=== PATIENT | female | born 1990 | race Caucasian/White ===

== ENCOUNTER 2017-06-04 20:24 | Emergency (ER) | payer OTHER ==
[~2017-06-04] VITALS: Ht 162.6 cm; Wt 63.5 kg
[2017-06-04] MEDS ORDERED: ONDANSETRON PF 4 MG/2 ML VIAL. ONE (20:37)
[2017-06-04] MEDS ORDERED: ONDANSETRON PF 4 MG/2 ML VIAL. IV ONE (20:45)
[2017-06-04] MEDS ORDERED: IV NORMAL SALINE 1000ML BAG 1,000 ML IV ONE ×3 (20:45→23:30)
[2017-06-04 20:48] LABS: BASO # 0.1 x10^3/uL (0.0-0.2); BASO % 1 % (0-3); EOS % 1 % (0-3); HEMATOCRIT 39.6 % (36.0-47.0); HEMOGLOBIN 13.4 g/dL (12.0-15.5); LYMPH # 3.4 x10^3/uL (1.0-4.8); LYMPH % 44 % (24-48); MEAN CORPUSCULAR HEMOGLOBIN 31 pg (25-35); MEAN CORPUSCULAR HGB CONC 34 g/dL (31-37); MEAN CORPUSCULAR VOLUME 92 fL (79-100); MONO % 7 % (0-9); NEUT % 47 % (31-73); PLATELET COUNT 259 x10^3/uL (140-400); RED CELL DISTRIBUTION WIDTH 12.4 % (11.5-14.5); WHITE BLOOD COUNT 7.8 x10^3/uL (4.0-11.0)
--- NOTE | 2017-06-04 20:50 | PHYS DOC ---
Adult General Chief Complaint Chief Complaint: ALTERED MENTAL STATUS HPI HPI Patient is a 27 year old F who presents with altered mental status. Patient was at the sporting [employer] soccer game and had been consuming alcohol however states only had a few beers and became altered therefore went to the nurse's station for further evaluation who called EMS to the patient transferred to the emergency room. Upon arrival to emergency room patient started vomiting. Patient is AOx2. Patient has no other complaints other than she does not feel well. No family or boyfriend or at bedside. Review of Systems Review of Systems Review of systems are limited secondary to patient's current condition Current Medications Current Medications Current Medications Medications (Trade) Dose Ordered Sig/Guy Start Time Stop Time Status Last Admin Dose Admin Ondansetron HCl (Zofran) 4 mg 1X ONCE 06/04/17 20:45 06/04/17 20:46 DC 06/04/17 20:47 4 MG Sodium Chloride 1,000 ml @ 1,000 mls/hr 1X ONCE 06/04/17 23:30 06/05/17 00:29 DC 06/04/17 23:28 1,000 MLS/HR Allergies Allergies Allergies Coded Allergies Type Severity Reaction Last Updated Verified No Known Drug Allergies 06/04/17 No Physical Exam Physical Exam GEN.: Mild distress, confused HEENT: Head is normocephalic, atraumatic NECK: Supple. LUNGS: CTAB. HEART: tachy, S1, S2 present. Peripheral pulses intact ABDOMEN: Soft, nontender. Positive bowel sounds. EXTREMITIES: Without any cyanosis. NEUROLOGIC: Slurred speech PSYCHIATRIC: Confused SKIN: No ulcerations Current Patient Data Vital Signs Vital Signs Date Time Temp Pulse Resp B/P (MAP) Pulse Ox O2 Delivery O2 Flow Rate FiO2 06/04/17 23:50 120 18 119/84 (96) 100 Room Air 06/04/17 20:24 98.6 98.6 Lab Values Laboratory Tests Test 06/04/17 19:58 06/04/17 20:30 06/04/17 20:50 POC Urine HCG, Qualitative Hcg negative (Negative) White Blood Count 7.8 x10^3/uL (4.0-11.0) Red Blood Count 4.30 x10^6/uL (3.50-5.40) Hemoglobin 13.4 g/dL (12.0-15.5) Hematocrit 39.6 % (36.0-47.0) Mean Corpuscular Volume 92 fL (79-100) Mean Corpuscular Hemoglobin 31 pg (25-35) Mean Corpuscular Hemoglobin Concent 34 g/dL (31-37) Red Cell Distribution Width 12.4 % (11.5-14.5) Platelet Count 259 x10^3/uL (140-400) Neutrophils (%) (Auto) 47 % (31-73) Lymphocytes (%) (Auto) 44 % (24-48) Monocytes (%) (Auto) 7 % (0-9) Eosinophils (%) (Auto) 1 % (0-3) Basophils (%) (Auto) 1 % (0-3) Neutrophils # (Auto) 3.7 x10^3uL (1.8-7.7) Lymphocytes # (Auto) 3.4 x10^3/uL (1.0-4.8) Monocytes # (Auto) 0.6 x10^3/uL (0.0-1.1) Eosinophils # (Auto) 0.1 x10^3/uL (0.0-0.7) Basophils # (Auto) 0.1 x10^3/uL (0.0-0.2) Sodium Level 144 mmol/L (136-145) Potassium Level 3.5 mmol/L (3.5-5.1) Chloride Level 106 mmol/L (98-107) Carbon Dioxide Level 25 mmol/L (21-32) Anion Gap 13 (6-14) Blood Urea Nitrogen 12 mg/dL (7-20) Creatinine 0.8 mg/dL (0.6-1.0) Estimated GFR (Cockcroft-Gault) 86.7 BUN/Creatinine Ratio 15 (6-20) Glucose Level 116 mg/dL (70-99) H Calcium Level 8.2 mg/dL (8.5-10.1) L Total Bilirubin 0.1 mg/dL (0.2-1.0) L Aspartate Amino Transferase (AST) 15 U/L (15-37) Alanine Aminotransferase (ALT) 23 U/L (14-59) Alkaline Phosphatase 64 U/L (46-116) Total Protein 8.0 g/dL (6.4-8.2) Albumin 4.5 g/dL (3.4-5.0) Albumin/Globulin Ratio 1.3 (1.0-1.7) Ethyl Alcohol Level 279 mg/dL (0-10) H Urine Collection Type U cath Urine Color Yellow Urine Clarity Clear Urine pH 5.0 Urine Specific [place] <=1.005 Urine Protein Negative mg/dL (NEG-TRACE) Urine Glucose (UA) Negative mg/dL (NEG) Urine Ketones (Stick) Negative mg/dL (NEG) Urine Blood Negative (NEG) Urine Nitrite Negative (NEG) Urine Bilirubin Negative (NEG) Urine Urobilinogen Dipstick 0.2 mg/dL (0.2 mg/dL) Urine Leukocyte Esterase Negative (NEG) Urine RBC 0 /HPF (0-2) Urine WBC 1-4 /HPF (0-4) Urine Squamous Epithelial Cells Few /LPF Urine Bacteria 0 /HPF (0-FEW) Urine Opiates Screen Neg (NEG) Urine Methadone Screen Neg (NEG) Urine Barbiturates Neg (NEG) Urine Phencyclidine Screen Neg (NEG) Urine Amphetamine/Methamphetamine Neg (NEG) Urine Benzodiazepines Screen Neg (NEG) Urine Cocaine Screen Neg (NEG) Urine Cannabinoids Screen Neg (NEG) Urine Ethyl Alcohol Pos (NEG) Laboratory Tests 06/04/17 20:30 Laboratory Tests 06/04/17 20:30 EKG EKG 2057: EKG shows sinus tach rate of 125 no STEMI [] Radiology/Procedures Radiology/Procedures CT the head NAD [] Course & Med Decision Making Course & Med Decision Making Pertinent Labs and Imaging studies reviewed. (See chart for details) ED course: Patient was seen and examined emergency room CBC, CMP, UA, and urine , UDS, ethanol level, CT scan of the head was ordered 2117: Patient was reevaluated in which she is vomiting and clearly intoxicated, explained the patient that blood work shows severe alcohol intoxication, attempting to utilize patient's phone to contact family her boyfriend to come pick her up 2119: Patient does not have her phone on her or her purse patient unable to provide any phone numbers 2214: Patient reexamined still unable to provide us any phone numbers or names of family members or boyfriend, police were contacted 2304: Patient has become more sober and is able to tell as she just moved here from [place] with her boyfriend who is out of town and she does not know his number. Patient states she went to the soccer game with a group of people from her neighborhood and she does not know any other numbers off the top of her head. Patient's family all live out of town. 0010: Police at bedside evaluated and interviewed the patient 0027: Patient is clinically sober she is alert and oriented to person, place, time. Patient is stable for a cab voucher back to her home. Please stated if she cannot get in to her house she can call the police and they'll come out and make sure she is safe. Patient will be discharged. MDM: After reviewing the chart, CC/HPI/PMH, physical exam, [lab results], [ radiological results], I do not believe the patient has emergent medical condition warranting further workup and/or admission at this time. Patient will be placed in a cab and brought back to her house. Patient is clinically sober. Patient is comfortable being discharged. I believe the persistent slightly elevated tachycardia is secondary to her anxiety and her social situation. Additional verbal discharge instructions were provided to the patient and that if symptoms get worse or any new symptoms arise that are worrisome to the patient she is to return to the emergency room immediately [] Dragon Disclaimer Dragon Disclaimer This electronic medical record was generated, in whole or in part, using a voice recognition dictation system. Departure Departure Impression: Primary Impression: Alcohol abuse Disposition: 01 HOME, SELF-CARE Condition: IMPROVED Patient Instructions: Alcohol Problems Additional Instructions: Please follow up with your family doctor in 1-2 days and return if symptoms increase BRAYAN HALE DO Jun 04, 2017 20:50
[2017-06-04 21:00] LABS: CALCIUM 8.2 mg/dL (8.5-10.1); CREATININE 0.8 mg/dL (0.6-1.0); GFR 86.7; POTASSIUM 3.5 mmol/L (3.5-5.1)
[2017-06-04 21:02] LABS: BILIRUBIN,URINE NEGATIVE (NEG); GLUCOSE,URINE NEGATIVE (NEG); NITRITE,URINE NEGATIVE (NEG); PROTEIN,URINE NEGATIVE (NEG-TRACE); UROBILINOGEN,URINE 0.2 mg/dL (0.2 mg/dL)
[2017-06-04 21:06] LABS: ALBUMIN 4.5 g/dL (3.4-5.0); ALBUMIN/GLOBULIN RATIO 1.3 (1.0-1.7); TOTAL BILIRUBIN 0.1 mg/dL (0.2-1.0)
[2017-06-04 21:09] LABS: BACTERIA,URINE 0 /HPF (0-FEW); BARBITURATES NEG (NEG); BENZODIAZEPINES NEG (NEG); CANNABINOIDS NEG (NEG); COCAINE NEG (NEG); METHADONE NEG (NEG); OPIATES NEG (NEG); PHENCYCLIDINE NEG (NEG); RBC,URINE 0 /HPF (0-2); SQUAMOUS EPITHELIAL CELL,UR FEW /LPF
--- NOTE | 2017-06-04 21:31 | RAD ---
CT HEAD PQRS STATEMENT: One or more of the following in the visualized dose reduction techniques were utilized for this study: 1. Automatic exposure control, 2. Adjustment of the mA and/or kV according to patient size, 3. Use of iterative reconstruction technique INDICATION: ams; TECHNIQUE: 5 mm contiguous axial images were obtained from the skull base to the vertex in both bone and soft tissue algorithm. FINDINGS: No abnormal attenuation within the brain parenchyma. No evidence of intracranial hemorrhage. No extra-axial fluid collections. No mass effect or midline shift. Ventricular size is appropriate. Basal cisterns are patent. No fractures identified.Tee-white differentiation is preserved.Globes and orbits are within normal limits. Paranasal sinuses and mastoid air cells are clear. IMPRESSION: No acute intracranial abnormality. Electronically signed by: Anand Murillo MD (06/04/2017 9:28 PM) [facility]
[2017-06-04 23:50] VITALS: BP 119/84
--- NOTE | 2017-06-05 06:06 | EKG ---
[facility] [address] [place] [address] Test Date: 2017-06-04 Test Time: 20:55:05 Pat Name: SLICK MARTINEZ Department: Room: Gender: F Fire Support Specialist: : [id number] Requested By: BRAYAN HALE Order Number: [id number] Reading MD: Al Isidro Measurements Intervals [place] Rate: 125 P: -143 OK: 76 QRS: 83 QRSD: 86 T: 33 QT: 350 QTc: 507 Interpretive Statements SINUS TACHYCARDIA NONSPECIFIC ST-T WAVE CHANGES. RI6.01 Unconfirmed report No previous ECG available for comparison Electronically Signed On 06-12-2017 9:01:42 CDT by Al Isidro
== END 2017-06-05 00:35 | disposition home or self-care (01) ==
LOC: ER 20:24
DX: F10.10 Alcohol abuse, uncomplicated (principal); R41.82 Altered mental status, unspecified
CPT/HCPCS: 36415; 70450; 80053; 80307; 81001; 81025; 85027; 93005; 96361; 96374; 99285; G0480; J2405; J7030; G0479